=== PATIENT | male | born 1950 | race Caucasian/White ===

== ENCOUNTER → 2018-03-23 | Outpatient (CLI) | payer MEDICARE ==
[~2018-03-23] MED LIST: ALPR1 PO; Aspirin EC81 MG PO; CARV3.125 PO; CLOP75 PO; FETZIMA80 MG PO; LISI5 PO; LORA10 PO; NITR.4SL SL; PANT20 PO; POTCHL10ER PO; PREG50 PO; Pravachol80 MG PO; SENN187 PO; TOPI25 PO; VERA80 PO
[2018-03-23 18:12] LABS: BASOPHILS ABSOLUTE AUTO 0.05 K/mm3 (0.00-0.23); BASOPHILS PERCENT AUTO 1 % (0-2); EOSINOPHILS ABSOLUTE AUTO 0.29 K/mm3 (0.00-0.68); EOSINOPHILS PERCENT AUTO 6 % (0-6); Hematocrit 39.7 % (37.0-53.0); Hemoglobin 12.6 g/dL (13.5-17.5); IMMATURE GRAN ABSOLUTE AUTO 0.01 K/mm3 (0.00-0.10); IMMATURE GRAN PERCENT AUTO 0 % (0-1); LYMPHOCYTES PERCENT AUTO 24 % (21-46); MONOCYTES ABSOLUTE AUTO 0.36 K/mm3 (0.16-1.47); MONOCYTES PERCENT AUTO 8 % (4-13); Mean Corpuscular HGB Conc 31.7 g/dL (31.5-36.5); Mean Corpuscular Volume 92 fL (80-100); Mean Platelet Volume 10.1 fL (9.1-12.4); NEUTROPHILS ABSOLUTE AUTO 2.76 K/mm3 (1.96-9.15); NEUTROPHILS PERCENT AUTO 60 % (41-73); Platelet Count 211 K/mm3 (150-400); RDW Standard Deviation 47.1 fL (35.1-46.3); Red Blood Cell Count 4.34 M/mm3 (4.30-5.90); White Blood Cell Count 4.57 K/mm3 (4.00-11.30)
[2018-03-23 20:46] LABS: Albumin, Blood 3.7 g/dL (3.4-5.0); Anion Gap 10 mmol/L (6-16); Blood Urea Nitrogen 11 mg/dL (8-24); CHOL/HDL RATIO 3.2; CO2, Blood 24 mmol/L (21-32); Calcium, Blood 8.2 mg/dL (8.5-10.1); Chloride, Blood 109 mmol/L (98-108); Cholesterol 154 mg/dL (50-200); Glucose, Blood 109 mg/dL (70-99); HDL Cholesterol 48 mg/dL (>39); LDL/HDL RATIO 1.5; Low Density Lipoprotein Chol 73 mg/dL (0-110); Phosphorus, Blood 2.5 mg/dL (2.5-4.9); Sodium, Blood 143 mmol/L (136-145); Triglycerides 164 mg/dL (30-160); Very Low Density Lipoprot Chol 32 mg/dL (6-32)
[2018-03-23 20:49] LABS: Bun/Creatinine Ratio 9.6 (12.0-20.0); Creatinine, Blood 1.14 mg/dL (0.60-1.20); Glomerular Filtration Rate >60 (60-)
== END ==
LOC: LAB SHORT 16:30 → LAB 16:30
PROVIDERS: Family Medicine
DX: N18.2 Chronic kidney disease, stage 2 (mild) (principal); D63.1 Anemia in chronic kidney disease; I12.9 Hypertensive chronic kidney disease with stage 1 through stage 4 chronic kidney disease, or unspecified chronic kidney disease; E78.5 Hyperlipidemia, unspecified
CPT/HCPCS: 80061; 80069; 85018; 85025

== ENCOUNTER 2022-08-07 12:13 | Day surgery (SDC) | payer MEDICARE ==
[~2022-08-07] VITALS: Ht 175.3 cm; Wt 105.3 kg
[2022-08-07] MEDS ORDERED: VERA120 (12:36)
[2022-08-07] MEDS ORDERED: GABA300 (12:38)
[2022-08-07] MEDS ORDERED: CYCL10 (12:38)
--- NOTE | 2022-08-07 16:12 | NUR ---
08/07/22 1612 Silvana Guerrero 1542: DR GOODRICH CONSULTED FOR HOW TO ADVISE PATIENT ABOUT RESTARTING HIS PLAVIX AND THAT PATIENT'S DRESSING HAD BEEN CHANGED 4 TIMES IN 1 HOUR, BUT APPEARS TO BE SLOWING. DRESSING CHANGED THE 4TH TIME AFTER GETTING UP AND GETTING DRESSED. ACCORDING TO PATIENT, THE FEELING OF BLEEDING DOWN THE THROAT HAS ALSO IMPROVED. PER DR GOODRICH, PATIENT SHOULD RESTART PLAVIX IN ONE WEEK. THIS INFORMATION WAS COMMUNICATED TO PATIENT, PATIENT VERBALIZES UNDERSTANDING. 1600: [employer] HELPER [employer] IN TO ASSESS DRESSING. BLEEDING APPEARS TO HAVE SLOWED TO A RATE THAT WILL NOT SATURATE 5 PADS/HOUR. PATIENT INSTRUCTED TO CALL DR GOODRICH'S OFFICE IF RATE INCREASES AND HE HAS TO CHANGE THE DRESSINGS 5 TIMES IN 1 HOUR, PER DR GOODRICH'S ORDERS. PATIENT VERBALIZES UNDERSTANDING.
== END 2022-08-07 16:00 | disposition home or self-care (01) ==
LOC: ORSCSDS 12:13
PROVIDERS: Otolaryngology
PROC: 09SL0ZZ Reposition Nasal Turbinate, Open Approach (ICD-10-PCS; principal; 2022-08-07 12:00)
PROC: 09BM3ZZ Excision of Nasal Septum, Percutaneous Approach (ICD-10-PCS; principal; 2022-08-07 12:00)
DX: J34.2 Deviated nasal septum (principal); J34.3 Hypertrophy of nasal turbinates; I12.9 Hypertensive chronic kidney disease with stage 1 through stage 4 chronic kidney disease, or unspecified chronic kidney disease; N18.30 Chronic kidney disease, stage 3 unspecified; I25.2 Old myocardial infarction; I25.10 Atherosclerotic heart disease of native coronary artery without angina pectoris; E66.9 Obesity, unspecified; Z68.34 Body mass index [BMI] 34.0-34.9, adult; Z79.899 Other long term (current) drug therapy; Z79.82 Long term (current) use of aspirin
CPT/HCPCS: J0171; J1100; J2250; J2370; J2405; J2704; J3010